=== PATIENT | male | born 1955 | race Caucasian/White ===

== ENCOUNTER 2016-04-27 13:00 | Outpatient (RCR) ==
--- NOTE | 2016-04-21 14:42 | RS.OPPTEV2 ---
Date of Note: 04/21/16 Visit #: 1 Date of Evaluation: 04/21/16 Payer Source: Insurance Date of Onset/Injury/Change in Status: 03/27/16 Surgery Performed?: Yes Procedure Performed: Removed brain tumor Treatment Diagnosis: Ataxic gait History of Condition/Mechanism of Injury:: Patient was dx with brain tumor 3 yrs ago and they had been watching it and felt it was starting to change so he had it removed . He was told it is suspected to be malignant but that he should not be greater than stage II. They will find results out next week . His only symptoms prior to surgery were HAs. Now he is having difficulty with gait Prior Level of Function.....Patient was independent with: ADL's, Self Care, Caregiving, Ambulation/Mobility, Community Integration/Access Functional Limitations: Lifting, Carrying, Standing, Bending, Ambulation, Community Access/Integration Current Subjective/complaints:: Patient states he feels tired all the time for the medications he has been put on since surgery. Treatment Side (optional): N/A *Precautions: No lifting over 5#, no bending, do not hit your head. 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 Surgical History: Cholecystectomy Surgical History Comments:: Multiple kidney surgeries, brain tumor removed. Smoking Status: Never smoker Pain Assessment - Pain Description Pain Location: Patient has right lateral thigh pian since surgery and intermittent headaches. Functional Outcome Measure Tinetti: 21 (25% deficit) Other: Cardenas 40/52 One question was excluded due to breaking precautions. - G Codes & Severity Modifier G Codes & Modifier: Mobility, Walking & Moving Around. Eval - NARINDER. Goal - CI Source of G Code score: Tinetti & Cardenas Observation - Observation Inspection: Patient has well healing incision that extends from the right synagogue all the way across his hairline to the left synagogue region. Minimal reddish-pink in color. Handedness: Left Gait - Gait Pattern General Gait Pattern Observation: Weaving Gait, Wide Based Gait Gait Comments: Patient had increased path deviation and left foot drop with distances > 300'. General Muscle Strength: BLE strength was WNLs. He did exhibit muscle fatigue with quick onset. Sensation - Sensation Sensation Description: Within Normal Limits Balance - Sitting Balance Static Sitting Balance: Normal Dynamic Sitting Balance: Normal - Standing Balance Static Standing Balance: Normal Dynamic Standing Balance: Good Coordination - Tests Bilateral Heel to [place]: Normal/Intact Toe Tapping: Normal/Intact Interventions - Exercise/Activities/Manual Therapy Exercises/Activities: NA Manual Therapy: NA - Other Services Other Treatments/Services: [facility] Treatment Details: Static and dynamic standing balance activities with eyes open and eyes closed were performed. - Charges Total Direct Minutes: 15 Total Treatment Time: 60 Procedures billed for this date of service:: PT Teresa (Medium) & NMR Assessment Assessment: Patient exhibits decreased conditioning, decreased balance in standing and rapid muscle fatigue causing gait deficits and increased fall risk. Patient Education: Education of diagnosis, Body/Joint mechanics, Home Safety, Education of Plan of Care Rehab Potential: Good Short Term Goals Goal #1: Patient is tolerating continuous activity X 15 minutes w/o rest. Goal to be met by: 05/08/16 Goal #2: Patient is able to accept moderate standing balance challenge w/o LOB. Goal to be met by: 05/08/16 Goal #3: Patient is independent in basic HEP Goal to be met by: 05/08/16 Carpenter Assistant Goals Goal #1: Tinetti score 25/28 to decrease fall risk. Goal to be met by: 05/22/16 Goal #2: Cardenas 48/52 (modified to comply with precautions) Goal to be met by: 05/22/16 Goal #3: Patient ambulating 800' w/o footdrop with normalized gt pattern. Goal to be met by: 05/22/16 Goal #4: Independent with DC HEP. Goal to be met by: 05/22/16 Plan - Treatment to be Provided Procedures: Therapeutic Exercises, Therapeutic Activity, Gait Training, Patient Education Modalities: No Modalities - Treatment Plan Frequency: 2-3X week Duration: 4 weeks ORDER # VISITS AND/OR THROUGH DATE: 05/22/2016 - Treatment Code (1) Ataxia Comments: R27.0
--- NOTE | 2016-04-22 15:21 | RS.OPPTDN ---
Subjective Date of Note: 04/22/16 Visit #: 2 Date of Evaluation: 04/21/16 Payer Source: Insurance Treatment Diagnosis: Ataxic gait Current Subjective/complaints:: Patient and report patient is sleeping a lot since surgery. Reports LE weakness and some problems with balance. He reports being careful to avoid falls. *Precautions: No lifting over 5#, no bending, do not hit your head. Pain Assessment - Pain Description Pain Location: Patient has right lateral thigh pian since surgery and intermittent headaches. Pain Description: Radiating in the R UE is greater than the L UE. Current Pain Intensity: 5-6/10 Interventions - Exercise/Activities/Manual Therapy Exercises/Activities: [id number] Assisted with hamstring and SKTC. Red theraband for ankle df, 2s/10reps. 4# for SAQ and alt hook-lying hip flexion, 2s/10reps each. SLR. Isometric hip add with pillow. In standing at rail, hip flexion/ marching, alt hip abd, toe-ups and heel-ups. Discussed dx, safety precautions, and HEP. Paitent and given red and green therabands and copies of new exercises. Total minutes of Exercise: 40mins Manual Therapy: NA HOME EXERCISE PROGRAM: gentle stretching for cervical rotation and lateral flexion. red and green theraband ankle df, SLR, isometric hip add. Standing at kitchen counter with assistance for toe-ups/heel-ups, alt hip abd, and marching. - Charges Total Direct Minutes: 40mins Total Treatment Time: 40mins Procedures billed for this date of service:: EX3 Assessment: Patient motivated to progress with strengthening. He will need to progress slowly with exercise to increase strength and functional activity level. Patient Education: Body/Joint mechanics, Home Exercise Program, Home Safety, Activity Modification Patient demonstrates compliance with HEP?: Yes Short Term Goals Goal #1: Patient is tolerating continuous activity X 15 minutes w/o rest. Goal to be met by: 05/08/16 Progress towards Goal:: Progressing Goal #2: Patient is able to accept moderate standing balance challenge w/o LOB. Goal to be met by: 05/08/16 Goal #3: Patient is independent in basic HEP Goal to be met by: 05/08/16 Progress towards Goal:: Progressing Goal #4: Neck pain at rest <6/10. Goal to be met by: 03/07/14 Progress towards Goal:: Progressing Natural Gas Trader Goals Goal #1: Tinetti score 25/28 to decrease fall risk. Goal to be met by: 05/22/16 Goal #2: Cardenas 48/52 (modified to comply with precautions) Goal to be met by: 05/22/16 Goal #3: Patient ambulating 800' w/o footdrop with normalized gt pattern. Goal to be met by: 05/22/16 Goal #4: Independent with DC HEP. Goal to be met by: 05/22/16 Plan PLAN OF CARE EXPIRES ON:: 05/22/16 ORDER # VISITS AND/OR THROUGH DATE: 05/22/2016 PLAN: Continue Plan of Care
--- NOTE | 2016-04-24 16:17 | RS.OPPTDN ---
Subjective Date of Note: 04/24/16 Visit #: 3 Date of Evaluation: 04/21/16 Payer Source: Insurance Treatment Diagnosis: Ataxic gait Current Subjective/complaints:: Patient says he can tell he is doing better since his release from [facility]. Reports it takes him a long time to get ready in the morning. *Precautions: No lifting over 5#, no bending, do not hit your head. Pain Assessment - Pain Description Pain Location: Patient has right lateral thigh pian since surgery and intermittent headaches. Pain Description: Radiating in the R UE is greater than the L UE. Current Pain Intensity: 5-6/10 Interventions - Exercise/Activities/Manual Therapy Exercises/Activities: [id number] Assisted with hamstring and SKTC. Red theraband for ankle df, 2s/10reps. 4# for SAQ and alt hook-lying hip flexion, 2s/10reps each. SLR. Isometric hip add with pillow. In standing at rail, hip flexion/ marching, alt hip abd, toe-ups and heel-ups. Discussed dx, safety precautions, and HEP. Manual Therapy: NA HOME EXERCISE PROGRAM: gentle stretching for cervical rotation and lateral flexion. red and green theraband ankle df, SLR, isometric hip add. Standing at kitchen counter with assistance for toe-ups/heel-ups, alt hip abd, and marching. - Charges Total Direct Minutes: 40 Total Treatment Time: 40 Procedures billed for this date of service:: ex3 Assessment: Patient admits improved strength and endurance from beginning PT. He denies having any issues with stairs,but has difficulty getting going in the morning. He will continue to need therex to progress with balance and strength. Patient Education: Education of diagnosis, Body/Joint mechanics, Home Exercise Program, Home Safety, Activity Modification, Education of Plan of Care Patient demonstrates compliance with HEP?: Yes Short Term Goals Goal #1: Patient is tolerating continuous activity X 15 minutes w/o rest. Goal to be met by: 05/08/16 Progress towards Goal:: Progressing Goal #2: Patient is able to accept moderate standing balance challenge w/o LOB. Goal to be met by: 05/08/16 Goal #3: Patient is independent in basic HEP Goal to be met by: 05/08/16 Progress towards Goal:: Progressing Goal #4: Neck pain at rest <6/10. Goal to be met by: 03/07/14 Progress towards Goal:: Progressing Business Manager Goals Goal #1: Tinetti score 25/28 to decrease fall risk. Goal to be met by: 05/22/16 Goal #2: Cardenas 48/52 (modified to comply with precautions) Goal to be met by: 05/22/16 Goal #3: Patient ambulating 800' w/o footdrop with normalized gt pattern. Goal to be met by: 05/22/16 Goal #4: Independent with DC HEP. Goal to be met by: 05/22/16 Plan PLAN OF CARE EXPIRES ON:: 05/22/16 ORDER # VISITS AND/OR THROUGH DATE: 05/22/2016 PLAN: Progress Exercises
--- NOTE | 2016-04-27 14:21 | RS.OPPTDN ---
Subjective Date of Note: 04/27/16 Visit #: 4 Date of Evaluation: 04/21/16 Payer Source: Insurance Treatment Diagnosis: Ataxic gait Current Subjective/complaints:: Reports some soreness following last session of exercise. States he feels he is gaining strength and balance with walking is better. *Precautions: No lifting over 5#, no bending, do not hit your head. Pain Assessment - Pain Description Pain Location: Patient has right lateral thigh pain since surgery and intermittent headaches. Pain Description: Radiating in the R UE is greater than the L UE. Current Pain Intensity: mod Interventions - Exercise/Activities/Manual Therapy Exercises/Activities: [id number] Assisted with hamstring and SKTC. 4# for SAQ and alt hook-lying hip flexion, 2s/10reps each. SLR. Isometric hip add with pillow. Isometric hip flexion. Isometric trunk rotation. In standing at rail, hip flexion/marching, alt hip abd, toe-ups/heel-ups, mini-quats. Side-step/ marching. Discussed dx, safety precautions, and HEP. Total minutes of Exercise: 45mins Manual Therapy: NA HOME EXERCISE PROGRAM: gentle stretching for cervical rotation and lateral flexion. red and green theraband ankle df, SLR, isometric hip add. Standing at kitchen counter with assistance for toe-ups/heel-ups, alt hip abd, and marching. - Charges Total Direct Minutes: 45mins Total Treatment Time: 45mins Procedures billed for this date of service:: EX3 Assessment: Patient progressing with strengthening exercise and reporting improvement in strength. Patient Education: Education of diagnosis, Body/Joint mechanics, Home Exercise Program, Activity Modification Patient demonstrates compliance with HEP?: Yes Short Term Goals Goal #1: Patient is tolerating continuous activity X 15 minutes w/o rest. Goal to be met by: 05/08/16 (50%) Progress towards Goal:: Progressing Goal #2: Patient is able to accept moderate standing balance challenge w/o LOB. Goal to be met by: 05/08/16 Progress towards Goal:: Progressing Goal #3: Patient is independent in basic HEP Goal to be met by: 05/08/16 Progress towards Goal:: Progressing Goal #4: Neck pain at rest <6/10. Goal to be met by: 03/07/14 Progress towards Goal:: Progressing Contact Center Consultant Goals Goal #1: Tinetti score 25/28 to decrease fall risk. Goal to be met by: 05/22/16 Goal #2: Cardenas 48/52 (modified to comply with precautions) Goal to be met by: 05/22/16 Goal #3: Patient ambulating 800' w/o footdrop with normalized gt pattern. Goal to be met by: 05/22/16 Goal #4: Independent with DC HEP. Goal to be met by: 05/22/16 Plan PLAN OF CARE EXPIRES ON:: 05/22/16 ORDER # VISITS AND/OR THROUGH DATE: 05/22/2016 PLAN: Continue Plan of Care
--- NOTE | 2016-05-01 13:49 | RS.CXNS ---
Date of scheduled appointment: 05/01/16 Type: Rescheduled (Patient presented to department today stating he is feeling progressively sick. States he is either getting a bad head-cold or the flu. Advised to contact physician or check in at an urgent care facility. Patient agreed, rescheduled appointments next week, and was walked to vehicle to return home.)
--- NOTE | 2016-06-01 14:01 | RS.QUICKDC ---
Discharge from PT Date of Discharge: 06/01/16 Number of Visits: 4 Reason for Discharge: Patient progressed well with strengthening exercise. He cancelled last session due to having a head cold. His called approx one week later and stated he had been released from therapy as his physician felt he was doing good. Discharge with HEP.
== END 2016-05-12 ==
PROVIDERS: ATTEND Psychiatry & Neurology Clinical Neurophysiology
DX: R53.1 Weakness (principal); S06.899S Other specified intracranial injury with loss of consciousness of unspecified duration, sequela; Z98.890 Other specified postprocedural states; I10 Essential (primary) hypertension; D33.2 Benign neoplasm of brain, unspecified

== ENCOUNTER 2019-03-07 23:39 | Inpatient (IN) ==
[2019-03-08] MEDS ORDERED: SODIUM CHLORIDE 1,000 ML IV STA ×2 (00:15→01:43)
[2019-03-08] MEDS ORDERED: ZOFRAN 4 MG/2 ML IVP STA ×3 (00:15→06:11)
[2019-03-08] MEDS ORDERED: PHENERGAN 25 MG/ML VIAL 25 MG in SODIUM CHLORIDE 50 ML IV STA (00:31)
[2019-03-08] MEDS ORDERED: MORPHINE 2 MG/ML SYRINGE IVP STA (00:31)
[2019-03-08] MEDS ORDERED: PHENERGAN 25 MG/ML VIAL ONE ×2 (00:39→14:53)
[2019-03-08] MEDS ORDERED: DILAUDID 1 MG/ML SYRINGE ONE ×2 (00:45→06:10)
[2019-03-08] MEDS ORDERED: DILAUDID 1 MG/ML SYRINGE IVP STA ×3 (00:48→06:11)
--- NOTE | 2019-03-08 01:11 | CT ---
EXAM: CT of the abdomen and pelvis without contrast. HISTORY: Abdominal pain. PROCEDURE: Contiguous axial CT images of the abdomen and pelvis without contrast with coronal and sa gittal reformats. FINDINGS: The dome of the liver is incompletely visualized secondary to termination of image acquisit ion which limits the exam. The visualized portion of the liver is normal in appearance. The gallbla dder is surgically absent. The pancreas, spleen and adrenal glands are normal in appearance. There are fluid density cysts in both kidneys. The abdominal aorta is within normal limits in diameter. T here are atherosclerotic calcifications in the major arteries of the abdomen and pelvis. The appendi x is normal in appearance. There is diverticulosis of the colon with no evidence of diverticulitis. No free fluid or free air in the visualized portion of the abdomen and pelvis. The bladder is minim ally filled which limits the evaluation. The seminal vesicles and prostate gland are unremarkable. There are degenerative changes in the spine. Impression: Colonic diverticulosis without diverticulitis. Bilateral renal simple cysts. Atherosclerotic vascular disease. Cholecystectomy.
--- NOTE | 2019-03-08 05:46 | ED.PDOC ---
General ED Provider: Dr. KAUSHAL FERRERA Chief Complaint: Nausea/Vomiting Stated Complaint: areli had vomiting, diarrhea and cramping--my grandson had the same symptoms Time Seen by Physician: 05:46 Mode of Arrival: Wheelchair Information Source: Patient and Family Primary Care Provider: LESLIE BOSE Nursing and Triage Documentation Reviewed and Agree: Yes Does patient meet sepsis criteria?: No System Inflammatory Response Syndrome: Not Applicable Sepsis Protocol: For patient's 13 years and over: Temp is 96.8 and below OR 101 and greater Pulse >90 BPM Resp >20/minute Acutely Altered Mental Status Are patient's symptoms suggestive of a new infection, such as: -Pneumonia -Skin, Soft Tissue -Endocarditis -UTI -Bone, Joint Infection -Implantable Device -Acute Abdominal Infection -Wound Infection -Meningitis -Blood Stream Catheter Infection -Unknown GI Complaint Exam Vomiting/Diarrhea Complaint/Exam Onset/Duration: several hours Symptoms Are: Still present Initial Severity: Mild Current Severity: Moderate Character of Vomiting: Reports Non-bilious Character of Diarrhea: Reports Watery Aggravating: Reports Food Associated Signs and Symptoms: Reports Abdominal pain and Cramping Related Surgical History: Reports Cholecystectomy Abdominal Findings: Present None Kussmaul Respirations Present: No Differential Diagnoses: Dehydration and Viral Gastroenteritis Review of Systems Review Of Systems Constitutional: Reports No symptoms Eyes: Reports No symptoms Ears, Nose, Mouth, Throat: Reports No symptoms Respiratory: Reports No symptoms Cardiac: Reports No symptoms GI: Reports Abdominal pain, Diarrhea, Nausea, Poor appetite, Poor fluid intake and Vomiting : Reports No symptoms Musculoskeletal: Reports No symptoms Skin: Reports No symptoms Neurological: Reports No symptoms Endocrine: Reports No symptoms Hematologic/Lymphatic: Reports No symptoms All Other Systems: Reviewed and Negative [facility] Medical History Bladder cancer Family History Mother Alcoholism Other Alcohol abuse Borderline hyperlipidemia Diabetes Drug abuse Environmental allergies High cholesterol Hypertension Thyroid disease Social History Smoking and tobacco status: Never smoker Physical Exam Physical Exam Appearance: Well-appearing Ill-appearing: Mild Pain Distress: Mild Eyes: KIMBERLEE, EOMI and Conjunctiva clear ENT: Ears normal Neck: Supple Respiratory: Airway patent Cardiovascular: RRR GI/: Soft Musculoskeletal: Normal strength Skin: Warm Neurological: Sensation intact Psychiatric: Affect appropriate, Mood appropriate and Anxious Interpretation Radiology Interpretation Radiology Interpretation By: Radiologist Radiology Results: Negative Exam Interpreted: CT Scan EKG Interpretation Time of EKG #1: 05:44 Rate: Normal Rhythm: Sinus Ectopy: None [place]: NL ST Segment: Normal Interpretation: nsr Re-Evaluation Re-Evaluation Time of Re-Evaluation: 05:45 Status: Improved Vital Signs Stable: Yes Pain Level: 1 Appearance: NAD Lungs: Clear Skin: Warm and Dry Neuro: Alert and Oriented X3 CV: RRR Additional Comments: feels better but still with nausea Critical Care Note Critical Care Note Total Time (mins): 0 Course Course Hematology/Chemistry: 03/08/19 00:20 03/08/19 00:20 Orders, Labs, Meds: Lab Review 03/08/19 03/08/19 03/08/19 00:20 00:20 04:10 WBC 20.64 H RBC 5.60 Hgb 18.0 Hct 52.8 H MCV 94.3 H MCH 32.1 H MCHC 34.1 RDW Coeff of Mino 12.5 Plt Count 277 Immature Gran % (Auto) 0.5 Neut % (Auto) 86.0 Lymph % (Auto) 7.9 L [place] % (Auto) 5.1 Eos % (Auto) 0.3 Baso % (Auto) 0.2 Immature Gran # (Auto) 0.1 Neut # (Auto) 17.7 H Lymph # (Auto) 1.6 [place] # (Auto) 1.1 Eos # (Auto) 0.1 Baso # (Auto) 0.0 Sodium 142.9 Potassium 3.89 Chloride 99.9 Carbon Dioxide 28.8 Anion Gap 18.09 BUN 28.3 H Creatinine 1.88 H Estimated GFR (MDRD) 36.00 BUN/Creatinine Ratio 15.05 Glucose 189.2 H Calcium 10.42 H Total Bilirubin 0.92 AST 27.3 ALT 32.9 Alkaline Phosphatase 75.3 Total Creatine Kinase 51.1 L Troponin I < 0.012 Total Protein 9.09 H Albumin 5.21 H Globulin 3.88 Albumin/Globulin Ratio 1.34 Amylase 89.4 Lipase 79.7 Urine Color Yellow Urine Clarity Cloudy Urine pH 5.5 Ur Specific [place] >=1.030 Urine Protein 3+ Urine Glucose (UA) Negative Urine Ketones Trace Urine Blood Negative Urine Nitrite Negative Urine Bilirubin Negative Urine Urobilinogen 0.2 Ur Leukocyte Esterase Negative Urine Microscopic RBC 0-2 Ur Squamous Epith Cells 0-2 Amorphous Sediment 2+ Hyaline Casts 2-5 Granular Casts 0-2 Fine Granular Casts 0-2 Urine Mucus Trace Orders Category Date Time Status EKG-(ED ONLY) Stat CARDIO 03/08/19 00:04 Completed ED IV/MEDIPORT/POWERPORT .ONCE EMERGENCY 03/08/19 00:04 Active AMYLASE Stat LAB 03/08/19 00:20 Completed CBC W/ AUTO DIFF Stat LAB 03/08/19 00:20 Completed COMPREHENSIVE METABOLIC PANEL Stat LAB 03/08/19 00:20 Completed CREATINE KINASE Stat LAB 03/08/19 00:20 Completed LIPASE Stat LAB 03/08/19 00:20 Completed TROPONIN I Stat LAB 03/08/19 00:20 Completed URINALYSIS C & S IF INDICATED Stat LAB 03/08/19 04:10 Completed 0.9 % Sodium Chloride [Saline Flush] MEDS 03/08/19 00:04 Active 1 syr IVF PRN PRN Hydromorphone HCl [Dilaudid 1 mg/ml Syringe] MEDS 03/08/19 00:45 Discontinued 1 mg .ROUTE .STK-MED ONE Hydromorphone HCl [Dilaudid 1 mg/ml Syringe] MEDS 03/08/19 00:48 Discontinued 1 mg IVP ONCE STA Hydromorphone HCl [Dilaudid 1 mg/ml Syringe] MEDS 03/08/19 02:56 Discontinued 1 mg IVP ONCE STA Morphine Sulfate [Morphine 2 mg/ml Syringe] MEDS 03/08/19 00:31 Discontinued 2 mg IVP ONCE STA Ondansetron HCl/Pf [Zofran 4 mg/2 ml] MEDS 03/08/19 00:15 Discontinued 4 mg IVP ONCE STA Ondansetron HCl/Pf [Zofran 4 mg/2 ml] MEDS 03/08/19 02:56 Discontinued 4 mg IVP ONCE STA Promethazine HCl [Phenergan 25 mg/ml Vial] MEDS 03/08/19 00:39 Discontinued 25 mg .ROUTE .STK-MED ONE Promethazine HCl [Phenergan 25 mg/ml Vial] 25 mg MEDS 03/08/19 00:31 Discontinued 0.9 % Sodium Chloride [Sodium Chloride] 50 ml IV ONCE Sodium Chloride 0.9% [Sodium Chloride] 1,000 ml MEDS 03/08/19 01:43 Active IV 250 mls/hr Sodium Chloride 0.9% [Sodium Chloride] 1,000 ml MEDS 03/08/19 00:[address] ABDOMEN/PELVIS WO CONTRAST Stat RADS 03/08/19 00:04 Completed Medications Generic Name Dose Route Start Last Admin Trade Name Freq PRN Reason Stop Dose Admin Sodium Chloride 1,000 mls @ 250 mls/hr 03/08/19 01:43 03/08/19 01:52 Sodium Chloride IV 03/08/19 05:42 250 mls/hr .Q4H STA Administration Sodium Chloride 1 syr 03/08/19 00:04 03/08/19 00:21 Saline Flush IVF 1 syr PRN PRN Administration To flush IV Discontinued Medications Generic Name Dose Route Start Last Admin Trade Name Freq PRN Reason Stop Dose Admin Hydromorphone HCl 1 mg 03/08/19 00:48 03/08/19 00:49 Dilaudid 1 Mg/Ml Syringe IVP 03/08/19 00:49 1 mg ONCE STA Administration Hydromorphone HCl 1 mg 03/08/19 02:56 03/08/19 03:01 Dilaudid 1 Mg/Ml Syringe IVP 03/08/19 02:57 1 mg ONCE STA Administration Sodium Chloride 1,000 mls @ 1,000 mls/hr 03/08/19 00:15 03/08/19 00:21 Sodium Chloride IV 03/08/19 01:14 1,000 mls/hr BOLUS STA Administration Promethazine HCl 25 mg/ Sodium 51 mls @ 75 mls/hr 03/08/19 00:31 03/08/19 00:41 Chloride IV 03/08/19 01:11 75 mls/hr ONCE STA Administration Morphine Sulfate 2 mg 03/08/19 00:31 03/08/19 00:35 Morphine 2 Mg/Ml Syringe IVP 03/08/19 00:32 2 mg ONCE STA Administration Ondansetron HCl 4 mg 03/08/19 00:15 03/08/19 00:21 Zofran 4 Mg/2 Ml IVP 03/08/19 00:16 4 mg ONCE STA Administration Ondansetron HCl 4 mg 03/08/19 02:56 03/08/19 03:00 Zofran 4 Mg/2 Ml IVP 03/08/19 02:57 4 mg ONCE STA Administration Vital Signs: Temp Pulse Resp BP Pulse Ox 03/08/19 04:39 99.1 F 74 16 112/68 96 03/07/19 23:39 99.7 F H 82 20 106/69 94 L Discharge Plan Discharge Patient Disposition: ADMITTED INPATIENT Discharge Problem: Nausea, Vomiting Prescriptions: No Action atorvastatin [Lipitor] 40 mg Tablet 40 mg PO BEDTIME RF: 0 bisoprolol-hydrochlorothiazide [Ziac] 10-6.25 mg Tablet 1 tab PO DAILY RF: 0 alprazolam [Xanax] 0.5 mg Tablet 0.5 mg PO BEDTIME RF: 0 ED Provider: KAUSHAL FERRERA Condition: Good
[2019-03-08] MEDS ORDERED: ZOFRAN 4 MG/2 ML IVP PRN (05:47)
[2019-03-08 06:28] VITALS: BMI 30.9
[2019-03-08] MEDS: SODIUM CHLORIDE 0.9%-KCL 20 MEQ 1,000 ML IV SCH ×2 (06:44→16:58)
[2019-03-08] MEDS: ZIAC 10-6.25 MG PO SCH (08:12)
[2019-03-08] MEDS: ZYLOPRIM PO SCH (08:13)
[2019-03-08] MEDS: DILAUDID 0.5 MG/0.5 ML SYRINGE IVP PRN ×3 (08:27→17:13)
[2019-03-08] MEDS: PHENERGAN 25 MG/ML VIAL 25 MG in SODIUM CHLORIDE 50 ML IV PRN (14:55)
[2019-03-08] MEDS: LIPITOR PO SCH (20:43)
[2019-03-08] MEDS: XANAX PO SCH (20:44)
[2019-03-09] MEDS: SODIUM CHLORIDE 0.9%-KCL 20 MEQ 1,000 ML IV SCH ×3 (01:54→18:53)
[2019-03-09] MEDS ORDERED: PHENERGAN 25 MG/ML VIAL ONE (02:01)
[2019-03-09] MEDS: PHENERGAN 25 MG/ML VIAL 25 MG in SODIUM CHLORIDE 50 ML IV PRN (02:04)
[2019-03-09] MEDS: DILAUDID 0.5 MG/0.5 ML SYRINGE IVP PRN ×6 (02:08→17:42)
[2019-03-09] MEDS: ZIAC 10-6.25 MG PO SCH (08:18)
[2019-03-09] MEDS: ZYLOPRIM PO SCH (08:18)
--- NOTE | 2019-03-09 14:53 | HP ---
DATE OF SERVICE: 03/08/19 CHIEF COMPLAINT: Abdominal pain, nausea, vomiting and diarrhea. SOURCE OF HISTORY: The patient. HISTORY OF PRESENT ILLNESS: The patient began complaining of abdominal pain yesterday afternoon. He take some Tums thinking that it might be from GERD but the problem did not improve and by 8:00pm the patient had experienced nausea with abdominal pain, vomiting and diarrhea. The patient's vomiting was frequent as well as the diarrhea that he lost count. Diarrhea is watery until today. He still has the abdominal pain as well as the back pain. The back pain however had been there for more than a month. The patient's claimed that his grandson had the nausea and vomiting about 5 days ago. His grandson was with him last Wednesday at [facility] and he was already getting better. Diagnosis for the grandson is unknown as to the cause of the diarrhea and vomiting. He was seen the emergency room and was noted by the emergency room physician to be dehydrated with an elevated BUN and creatinine and decreased EGFR. The specific gravity also was beyond 1.030. The patient's CBC showed moderate leukocytosis 20,640, hct 52.8, MCV and MCH slightly above normal. RBC 5.6. Hgb 18. Neutrophil 18.7. Blood sugar 189.2, calcium 10.42. Electrolytes are within normal. Amylase and lipase normal. Procalcitonin 0.22. CAT scan of the abdomen done at the emergency room showed no significant abnormalities. Because of the persistent diarrhea and dehydration this patient was admitted to the hospital for fluid replacement and further followup. 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 He is being followed in [place], [place] every year for the problem Tumor of the frontal sinus, benign Anxiety Depression GERD GOUT, on medication Dyslipidemia PAST SURGICAL HISTORY: Cholecystectomy Bladder surgery, removal of the mucosal carcinoma Kidney surgery, right side Sinus tumor, benign removal. FAMILY HISTORY: Mother had history of alcoholism, history of diabetes mellitus, drug abuse, hypertension, thyroid disease in the family SOCIAL HISTORY: The patient is and resides with his . He is retired from his job. He never did smoke. He denies any significant use of alcohol. MEDICATIONS: Allopurinol 300mg daily Xanax 0.5mg at bedtime Lipitor 40mg at bedtime Ziac 1 tablet daily ALLERGIES: Penicillin REVIEW OF SYSTEMS: CONSTITUTIONAL: The patient has no fever and no chills but fatigued because of the vomiting and diarrhea. HORTICULTURAL SPECIALTY GROWER:The patient has some headaches. No seizure. No syncopal episode. No ataxia. VISUAL: Negative AUDITORY: Hearing is adequate. Denies any pain or drainage. RESPIRATORY: Denies any cough, shortness of breath or hemoptysis. CARDIOVASCULAR: Denies any chest pain, shortness of breath or diaphoresis. GI: The patient has abdominal pain, persistent with nausea and vomiting and diarrhea. : Denies any pain, frequency of urination or urgency. INTEGUMENT: Denies any rash or pruritus. MUSCULOSKELETAL: The patient had back pain and had been experiencing back pain from about midback to the end of the lumber area. The patient does not complain of any other joint pains at this time that is significant. ENDOCRINE: No polyuria or polydipsia. HEMATOLOGY: No history of prolonged bleeding or spontaneous bleeding. PSYCHIATRIC: The patient has a history of anxiety as well as depression. PHYSICAL EXAMINATION: GENERAL: VITAL SIGNS: Temperature 98.2, pulse 92, blood pressure 107/60, respiratory rate 18. oxygen saturation 94% at room air. 6'2 weighting 240 pounds, 11.9 ounces. The patient back 08/01/15 weighed 271 pounds and went down as low as 238 this year. HEAD: Unremarkable. Scalp has no active dermatitis. FACE: Symmetrical and equal with no facial weakness. There is no tenderness in the frontal and maxillary sinus areas to palpation under pressure. EYES: Pupils are equal and reactive to light about 3mm in size. MOUTH: Unremarkable NECK: No masses. No tenderness. No adenopathies. CHEST: Symmetrical and equal with good expansion. LUNGS: Breath sounds are heard in both sides. No rales or wheezing. HEART: Audible and regular with good tones. No murmurs. ABDOMEN: Slightly protuberant. Soft with no some tenderness but no muscular guarding. Bowel sounds are hyperactive. No bruit. EXTERNAL GENITALIA: Not examined RECTAL: Not performed. LOWER EXTREMITIES: Symmetrical and equal. Anterior tibials are present but the posterior tibials are absent. UPPER EXTREMITIES: Symmetrical and equal. ASSESSMENT: 1. Gastroenteritis, etiology undetermined maybe viral 2. Dehydration secondary to #1 3. History of bladder carcinoma, treated with BCG plus resection followed by [facility] yearly 4. History of GOUT on medication 5. History of hypertension 6. History of renal stones 7. History of GERD 8. History of benign tumor, frontal sinus 9. History of anxiety/depression PLAN: 1. Continue fluids 2. Level 4 PCR 3. Procalcitonin. TIME SPENT: GREATER THAN 65 MINUTES MTDD
--- NOTE | 2019-03-09 15:29 | CT ---
EXAM: CT LUMBAR SPINE HISTORY: Low back pain with bilateral lower extremity radicular symptoms TECHNIQUE: CT lumbar spine without contrast. 3-mm axial sections. Coronal and sagittal reformation s. FINDINGS: There is a mild scoliosis convex to the left. Sacroiliac joints have mild to moderate art hropathy. Sagittal images reveal no spondylolisthesis or loss of vertebral body height. There are l ateral and anterior nearly bridging osteophytic spurs present. Diffuse degenerative disc and facet d isease is noted most apparent at L3/L4 and L4/L5 where broad-based disc bulging, ligamentum flavum hy pertrophy and significant facet arthropathy lead to at least moderate central canal stenosis and mild to moderate bilateral neural foraminal narrowing. At L5/S1, there is posterior osteophytic spurring leading to bilateral neural foraminal narrowing, greater on the left. There is no paraspinal fluid collection or inflammation. Cystic foci within the partially imaged left renal cortex are noted vlad lar to that seen on recent CT abdomen and pelvis dated 03/08/2019. Refer to that report. IMPRESSION: 1. Significant degenerative disc and facet disease especially at L3/L4 and L4/L5. Given symptoms, c onsider correlation with MRI.
[2019-03-09] MEDS ORDERED: DILAUDID 0.5 MG/0.5 ML SYRINGE IVP PRN (18:40)
[2019-03-09] MEDS ORDERED: DILAUDID 1 MG/ML SYRINGE IVP PRN (18:54)
[2019-03-09] MEDS: LIPITOR PO SCH (21:07)
[2019-03-09] MEDS: XANAX PO SCH (21:07)
[2019-03-09] MEDS ORDERED: TORADOL IM STA (23:04)
[2019-03-10 05:31] VITALS: BP 125/73; TEMP 97.9
--- NOTE | 2019-03-10 09:14 | PN ---
DATE OF SERVICE: 03/09/19 SUBJECTIVE: The patient was admitted because of nausea, vomiting and diarrhea with abdominal pain. The abdominal pain has regressed remarkably. The nausea and vomiting has resolved as well as diarrhea. This patient is complaining mainly of pain in the back mostly in the upper lumbar area. The pain does have bilateral radiation to the lower extremities up to about mid thigh. Also, has pain in the lower lumbar area above the sacrum. The patient's doctor or provider tells him that he might need to see a chiropractor. I did tell him that the CT scan of the lumbar spine today showed significant degenerative disk and facet disease especially at the L3 and L4 and L4 and L5. Given the symptoms, the radiologist did advise consideration to an MRI study. I did mention this to the patient. I did ask about food habits that this patient has and he claims that he eats a whole lot of meat but mostly chicken. I did inform him that meat does produce what is called [place]-6 and [place]-6 fatty acid is pro-inflammatory meaning it does increase inflammation of the bones and ligaments. It would probably be best if he could give a try of not eating meat. His diet would be exclusively fish or crustation. He seemed to be agreeable with that. I did tell him that it is not overnight, it may take two months to see the effects of that diet change. After awhile one may be able to eat intermittently some meat. Nausea and vomiting was probably gastroenteritis, maybe viral although the workup at this time is still pending. Will probably get a lumbar MRI on this patient. Will obtain a blood test to rule out rheumatoid arthritis problems since he also has some swelling of the fingers and soreness although he does not have the stiffness that lasts more than two hours every morning. His diet will be advanced to full liquid, no fat and no meat. MTDD
[2019-03-10] MEDS: ZIAC 10-6.25 MG PO SCH (09:26)
--- NOTE | 2019-03-13 13:04 | DS ---
DATE OF SERVICE: 03/10/19 FINAL DIAGNOSES: 1. Acute gastroenteritis, etiology undetermined, resolved 2. Lumbar pain persistent more than a months duration had consulted his primary provider for this problem. 3. History of bladder carcinoma followed by a urologist at [place], [place]. 4. Dehydration secondary to the gastroenteritis, resolved 5. History of GOUT, on medication 6. History of hypertension, on medication 7. History of renal stones 8. History of GERD 9. History of anxiety/depression HISTORY OF PRESENT ILLNESS/HOSPITAL COURSE: 62 year old male was seen initially at the emergency room because of abdominal pain, nausea and vomiting. Problem began has vomiting and was relieved or improved by Tums. The patient continued to have vomiting as well as diarrhea and the patient was dehydrated at presented to the emergency room with elevated BUN, markedly decreased EGFR and elevated specific gravity the urine beyond 1.030. The patient was hydrated and admitted. The patient's initial CBC showed 20,000+ WBC with elevated neutrophils. The procalcitonin was 0.22 below 0.5. The patient had history of bladder carcinoma and treated with BCG for immobile of the localized bladder carcinoma. It is being followed gently. Back pain for more than month in the lower lumbar area. I has some radiation to about mid thigh. He had seen his primary provider with regards to the back pain. He was told to see a Chiropractor for treatment. He had previous kidney surgery on the right side and the tumor was removed and benign plus previous cholecystectomy and bladder carcinoma it was removed. The patient was continued on fluid replacements. LUNGS: Clear to auscultation through his hospital stay. HEART: Audible and regular with good tones. No murmurs ABDOMINAL:The vomiting has resolved the following day. The patient was able to tolerate the clear liquid diet. The abdominal pain has decreased remarkable and no muscular guarding on abdominal examination and bowel sounds still slightly hyperactive on the second hospital day. The patient on the day of discharge is alert and ambulatory without any significant abdominal pains. No nausea, vomiting or diarrhea. His abdominal pain is very minimal and no remarkable tenderness. Bowel sounds are active. No masses. No muscular guarding. The patient had no tenderness in the calf muscles. He wanted to go home since his was very sick similar to what he had experienced. The patient during this admission had a negative Influenza A and B quantitatively as well as the negative RSV. Neurovirus was requested but no results at this time. The CAT scan of the abdomen and pelvis without contrast done 03/08/19 showed colonic diverticulosis without diverticulitis, bilateral renal simple cyst, atherosclerotic vascular disease and previous cholecystectomy. Lumbar CT because of persistent lumbar pain showed significant degenerative disc and facet disease especially L3/L4 and L4/L5. Given the above symptoms the radiologist recommended an MRI for further clarification. The patient after discharge is to resume his previous medications and to see me this coming Wednesday so we can proceed to schedule him for an MRI. I told him that the MRI would last more than half an hour. Believe that the gastroenteritis is probably viral. He had not eaten any food that may have caused the problems. He did eat outside with his grandson but his grandson did not have the problems as he had. His grandson had the problems prior to eating to a restaurant with him. The grandson at that time was recovering from the problem of gastroenteritis. VITAL SIGNS: Blood pressure 125/73, pulse 64, respiratory rate 16, temperature 97.9, oxygen saturation 96% at room air. Note the stool for PCR screen has no results or maybe they did not obtain any stool specimen. TIME SPENT: GREATER THAN 30 MINUTES MTDD
== END 2019-03-10 13:35 | disposition home or self-care (01) | DRG 392 ==
LOC: ED 23:39 → MEDSURG B 03-08 05:48
PROVIDERS: ADMIT General Practice; ATTEND General Practice
DX: M54.5 Low back pain; E86.0 Dehydration; R11.2 Nausea with vomiting, unspecified; K52.9 Noninfective gastroenteritis and colitis, unspecified